=== PATIENT | male | born 1970 | race Caucasian/White ===

== ENCOUNTER → 2018-06-30 | Outpatient (CLI) | payer OTHER ==
[~2018-06-30] MED LIST: ALPR.25; ALPR.25 PO; AMOCLA875 PO; ASPI325; CIPR500 PO; ESCI10; HYDACE10B PO; HYDACE5 PO; LISHYD2025 PO; LISINOPRIL-? DOSE; METH5 PO; METO25ER PO; NAPR500 PO; PROM25 PO; Prinivil10 MG PO; TRAM50 PO
[2018-06-30 15:05] LABS: U Amphetamine Screen Not Detected; U Barbituate Screen Not Detected; U Benzodiazapine Screen DETECTED; U Buprenorphine Screen Not Detected; U Cannabinoids Screen Not Detected; U Cocaine Screen Not Detected; U Methadone Screen Not Detected; U Methamphetamine Screen Not Detected; U Opiates Screen DETECTED; U Oxycodone Screen Not Detected; U Phencyclidine Screen Not Detected; U Propoxyphene Screen Not Detected
== END | disposition home or self-care (01) ==
LOC: LAB 13:42 → LAB SHORT 13:42 → LAB FUT 06-24 10:20 → EDSTATUS 06-24 10:20
PROVIDERS: Physician Assistant
DX: Z51.81 Encounter for therapeutic drug level monitoring (principal); Z79.891 Long term (current) use of opiate analgesic

== ENCOUNTER 2024-04-29 07:39 | Inpatient (IN) | payer OTHER ==
[2024-04-29] VITALS (17 sets, daily range): BP systolic 87–129; BP diastolic 73–101
[~2024-04-29] VITALS: Ht 170.2 cm; Wt 77.3 kg
[2024-04-29] MEDS ORDERED: LISI20 PO (07:53)
[2024-04-29] MEDS ORDERED: METO25ER PO (07:53)
[2024-04-29] MEDS ORDERED: FURO20 PO (07:53)
[2024-04-29 08:30] LABS: BASOPHILS ABSOLUTE AUTO 0.06 K/mm3 (0.00-0.23); BASOPHILS PERCENT AUTO 1 % (0-2); EOSINOPHILS PERCENT AUTO 1 % (0-6); Hematocrit 32.4 % (37.0-53.0); Hemoglobin 11.6 g/dL (13.5-17.5); IMMATURE GRAN ABSOLUTE AUTO 0.07 K/mm3 (0.00-0.10); IMMATURE GRAN PERCENT AUTO 1 % (0-1); LYMPHOCYTES ABSOLUTE AUTO 0.91 K/mm3 (0.84-5.20); LYMPHOCYTES PERCENT AUTO 12 % (21-46); MONOCYTES ABSOLUTE AUTO 1.04 K/mm3 (0.16-1.47); MONOCYTES PERCENT AUTO 14 % (4-13); Mean Corpuscular HGB 33.9 pg (26.0-34.0); Mean Corpuscular HGB Conc 35.8 g/dL (31.5-36.5); Mean Corpuscular Volume 95 fL (80-100); Mean Platelet Volume 9.5 fL (9.1-12.4); NEUTROPHILS ABSOLUTE AUTO 5.19 K/mm3 (1.96-9.15); NEUTROPHILS PERCENT AUTO 71 % (41-73); Platelet Count 159 K/mm3 (150-400); RDW Coefficient Variation 13.3 % (11.7-14.2); RDW Standard Deviation 46.4 fL (35.1-46.3); Red Blood Cell Count 3.42 M/mm3 (4.30-5.90); White Blood Cell Count 7.37 K/mm3 (4.00-11.30)
[2024-04-29] MEDS ORDERED: Furosemide 10 MG / ML 2ML Vial IV ONE (08:50)
[2024-04-29 08:57] LABS: Albumin, Blood 2.6 g/dL (3.4-5.0); Albumin/Globulin Ratio 0.6 (0.8-1.8); Bilirubin, Total 1.3 mg/dL (0.1-1.0); Bun/Creatinine Ratio 10.5 (12.0-20.0); Calcium, Blood 7.9 mg/dL (8.5-10.1); Creatinine, Blood 0.38 mg/dL (0.60-1.20); Globulin, Blood 4.2 g/dL (2.2-4.0); Total Protein, Blood 6.8 g/dL (6.4-8.2)
[2024-04-29] MEDS ORDERED: FLU VACC TS2024-25(6MOS UP)/PF 45 MCG/0.5 ML SYRINGE IM PRN (10:30)
[2024-04-29] MEDS ORDERED: Nicotine 21 MG PATCH TOP ONE (10:30)
[2024-04-29] MEDS ORDERED: Acetaminophen 325 MG TABLET PO PRN (10:35)
[2024-04-29] MEDS ORDERED: Loperamide HCl 2 MG Cap PO PRN (10:35)
[2024-04-29] MEDS ORDERED: ChlordiazePOXIDE 25 MG Cap PO PRN (10:35)
[2024-04-29] MEDS ORDERED: LORazepam 2 MG/ML 1ML Injection IV PRN (10:35)
[2024-04-29] MEDS ORDERED: NS 1,000 ML IV SCH (11:00)
[2024-04-29 11:54] LABS: Source, Urine Clean Catch
[2024-04-29] MEDS ORDERED: Thiamine HCl 100 MG in NS 50 ML IV SCH (12:00)
[2024-04-29 12:14] LABS: Appearance, Urine Clear (Clear); Bilirubin, Urine Neg (Neg); Blood, Urine Neg (Neg); Color, Urine Yellow (P-Yellow); Glucose Qualitative, Urine Neg (Neg); Ketones, Urine 3+ (Neg); Leukocyte Esterase, Urine Neg (Neg); Nitrite, Urine Neg (Neg); Protein, Urine Neg (Neg); Urobilinogen, Urine NORM (Normal); pH, Urine 6.5 (5.0-8.0)
[2024-04-29 13:08] LABS: U Amphetamine Screen Not Detected; U Barbituate Screen Not Detected; U Benzodiazapine Screen Not Detected; U Buprenorphine Screen Not Detected; U Cannabinoids Screen Not Detected; U Cocaine Screen Not Detected; U Methadone Screen Not Detected; U Methamphetamine Screen Not Detected; U Opiates Screen Not Detected; U Oxycodone Screen Not Detected; U Phencyclidine Screen Not Detected
--- NOTE | 2024-04-29 13:08 | NUR ---
PT ARRIVAL... PT ARRIVED TO THE UNIT AT 1200, PT IS A&Ox4 AND SBA IN THE ROOM D/T THE LINES/CORDS. PT WAS ABLE TO SELF TRANSFER FROM THE ER GURNEY TO THE BED. PT'S WAS IN SINUS TACH 100'S-110'S BP WAS STABLE WITH MAPS>65. PT HAS 2+ PITTING EDEMA TO HIS RLE AND 3+ TO HIS LLE. L/S CLEAR T/O ON RA WITH O2 SATS>95%. PT DOES C/O OF DISCOMFORT AND SOME SOB D/T "MY STOMACH PUSHING AGAINST MY LUNGS." PT'S ABD IS LARGE AND SLIGHTLY FIRM TO PALPATION, PT DENIES ANY PAIN AT THIS TIME. PT'S SOUMYA IS AT THE BEDSIDE, MEDS AND HISTORY CHARTED WITH SOUMYA'S HELP. NS AT 50MLS/HR STARTED PER ORDERS. CIWA SCORE WAS 9, PT MEDICATED WITH LIBRIUM PER EMAR. CALL LIGHT IN REACH WILL CONTINUE TO MONITOR.
[2024-04-29 13:23] LABS: Potassium, Blood 3.8 mmol/L (3.5-5.5)
[2024-04-29] MEDS ORDERED: Albuterol 2.5 MG/3 ML VIAL INH PRN (15:55)
[2024-04-29] MEDS ORDERED: Famotidine 20 MG Tab PO SCH (16:30)
[2024-04-29 17:21] LABS: Potassium, Blood 3.6 mmol/L (3.5-5.5)
--- NOTE | 2024-04-29 17:29 | NUR ---
SHIFT SUMMARY.... NO ACUTE NEGATIVE CHANGES NOTED THIS SHIFT. PT'S VSS. PT'S CIWA HAS BEEN BETWEEN 8-11 MEDICATED PER EMAR WITH GOOD RESULTS. PT IS SBA TO TOILET. PT'S FAMILY AT THE BEDSIDE. PLANS FOR PARACENTESIS TOMORROW, ORDERS TO HOLD LOVONOX IN THE AM WERE PLACED. WILL CONTINUE TO MONITOR UNTIL REPORT IS GIVEN TO ONCOMING RN.
--- NOTE | 2024-04-29 20:00 | NUR ---
ASSUMED CARE OF PT AT 1900. REPORT RECEIVED AT BEDSIDE. PT PRESENTS IN BED. ALERT AND ORIENTED. PLEASANT AND COOPERATIVE WITH CARE AND ASSESSMENT. ACKNOWLEDGES THAT HE IS EXPERIENCING ETOH W/D'S. TREMORS NOTED. PT UP TO TOILET WITH ONE PERSON ASSIST. VOIDS AND HAS LOOSE BM WHICH PT STATES IS NORMAL FOR HIM. WILL REVIEW CHART AND PLAN OF CARE FOR THIS PT.
[2024-04-29 21:53] LABS: Potassium, Blood 3.4 mmol/L (3.5-5.5)
[2024-04-30] VITALS (29 sets, daily range): BP systolic 103–140; BP diastolic 62–103
--- NOTE | 2024-04-30 02:37 | NUR ---
UPDATE: ASSUMED CARE OF PT FROM YARELY HEATON AT 0230. PT ALERT AND ORIENTED, RESTING COMFORTABLY AT THIS TIME, HAS NO CONCERNS.
[2024-04-30 03:34] LABS: Hematocrit 28.9 % (37.0-53.0); Hemoglobin 10.3 g/dL (13.5-17.5); Mean Corpuscular HGB 33.4 pg (26.0-34.0); Mean Corpuscular HGB Conc 35.6 g/dL (31.5-36.5); Mean Corpuscular Volume 94 fL (80-100); Mean Platelet Volume 9.3 fL (9.1-12.4); Platelet Count 156 K/mm3 (150-400); RDW Coefficient Variation 13.3 % (11.7-14.2); RDW Standard Deviation 45.6 fL (35.1-46.3); Red Blood Cell Count 3.08 M/mm3 (4.30-5.90); White Blood Cell Count 6.13 K/mm3 (4.00-11.30)
[2024-04-30 03:55] LABS: Magnesium, Blood 1.4 mg/dL (1.6-2.4); Thyroxine (T4) 6.9 ug/dL (4.5-12.1)
[2024-04-30 04:06] LABS: Ferritin, Serum 244 ng/mL (26-388)
[2024-04-30 04:08] LABS: Albumin, Blood 2.4 g/dL (3.4-5.0); Anion Gap 16 mmol/L (3-11); Blood Urea Nitrogen 4 mg/dL (8-24); Bun/Creatinine Ratio 11.5 (12.0-20.0); CO2, Blood 21 mmol/L (21-32); Calcium, Blood 7.5 mg/dL (8.5-10.1); Chloride, Blood 86 mmol/L (98-108); Creatinine, Blood 0.35 mg/dL (0.60-1.20); Glomerular Filtration Rate 135 (60-); Glucose, Blood 88 mg/dL (70-99); Potassium, Blood 3.5 mmol/L (3.5-5.5); Sodium, Blood 119 mmol/L (136-145)
[2024-04-30] MEDS ORDERED: Magnesium Sulf 2 GM/Water 50ML 50 ML IV ONE (04:35)
--- NOTE | 2024-04-30 05:38 | NUR ---
SHIFT SUMMARY: PT ALERT AND ORIENTED. MAKES NEEDS KNOWN AND FOLLOWS DIRECTION. ON RA WITH SPO2 LOW TO MID 90'S. PLASTERER TENDER IN PLACE, ST WITH HR 110-130'S. SBP 115-140'S. DENIES CP. PT UNABLE TO VOID THIS AM DESPITE GETTING UP TO THE COMMODE. STRAIGHT CATH PERFORMED WITH 600 ML OUT. NO BM SINCE ASSUMPTION OF CARE. ABDOMEN DISTENDED AND TENDER TO THE TOUCH. PLANNED PARACENTESIS THIS AM. NS INFUSING AT 75 ML/HR. MAGNESIUM INFUSING AT 25 ML/HR X 50 ML. PIVS INTACT. POWERGLIDE TO DEL PATENT. CIWA 2-8. MEDICATED WITH PRN LIBRIUM. TOLERATING PO INTAKE. BED LOW AND LOCKED, CALL LIGHT IN REACH.
[2024-04-30] MEDS ORDERED: Sodium Phosphate 30 MM in Dextrose 5% 500 ML IV SCH (06:00)
[2024-04-30] MEDS ORDERED: Furosemide 10 MG/ML 4ML Vial IV ONE (07:25)
[2024-04-30 07:56] LABS: Potassium, Blood 3.5 mmol/L (3.5-5.5)
[2024-04-30] MEDS ORDERED: Potassium Phos/Sodium Phos 250 MG PACK PO SCH (08:00)
[2024-04-30] MEDS ORDERED: Enoxaparin 40 MG/0.4 ML SYR SC SCH (09:00)
[2024-04-30] MEDS ORDERED: Multivitamins 1 Tab PO SCH (09:00)
[2024-04-30 10:22] LABS: Automated BF RBC Count 0.002 M/mm3 (0-0); Automated BF WBC Count 0.136 K/mm3 (0-999)
[2024-04-30 10:25] LABS: Body Fluid WBC Count 136 /mm3 (0-999); RBC Count, Body Fluid 2000 /mm3 (0-0)
[2024-04-30 10:57] LABS: Albumin, Body Fluid 1.2 g/dL
[2024-04-30 11:03] LABS: Protein, Body Fluid 2.5 g/dL
[2024-04-30] MEDS ORDERED: Albumin (Human) 25gm/100ml 100 ML IV ONE (11:05)
[2024-04-30 11:56] LABS: Potassium, Blood 2.9 mmol/L (3.5-5.5)
[2024-04-30 12:14] LABS: Appearance, Body Fluid Hazy (Clear); Color, Body Fluid Yellow (None-Yellow); Total Cell Count, Body Fluid 100
[2024-04-30] MEDS ORDERED: Potassium Chloride 20 MEQ TabCR PO ONE (12:25)
[2024-04-30] MEDS ORDERED: Nicotine 21 MG PATCH TOP SCH (13:45)
[2024-04-30 15:52] LABS: Potassium, Blood 3.3 mmol/L (3.5-5.5)
[2024-04-30] MEDS ORDERED: Potassium Chloride 10 Meq Tablet SA PO ONE (16:35)
--- NOTE | 2024-04-30 17:46 | NUR ---
SUMMARY PT A/O X4. SOMETIMES WAKES FROM SLEEP DISORIENTED BUT IS EASILY REORIENTED. FOLLOWS COMMANDS. OOB TO BSC AND USES URINAL AT BEDSIDE WITH ASSIST. PT WILL ASK FOR LIBRIUM WHEN HE FEELS HIS WITHDRAWL SYMPTOMS WORSENING. SODIUM LEVEL SLOWLY IMPROVING AND STARTING TO GET HIS APPEPTITE BACK. PO POTASSIUM GIVEN TODAY. PARACENTESIS DONE TODAY WITH 4L OFF. PT IS MORE COMFORTABLE NOW AND MOVING AROUND EASIER. AT BEDSIDE MOST OF THE DAY AND UPDATED. NO SIGN OF DISTRESS.
--- NOTE | 2024-04-30 20:00 | NUR ---
ASSUMED CARE OF PT AT 1900. REPORT RECEIVED AT BEDSIDE. PT WAS ABLE TO ASK FOR 50 MG MORE LIBRIUM. PT STATES HE IS FEELING SHAKY. PT MEDICATED PER EMAR. PT VISITING WITH GUEST IN ROOM. WILL REVIEW CHART AND PLAN OF CARE FOR THIS PT.
[2024-05-01] VITALS (34 sets, daily range): BP systolic 80–152; BP diastolic 62–129
--- NOTE | 2024-05-01 01:20 | NUR ---
PT HAS BEEN ESCALATING IN CONFUSION AND S/S WITHDRAWALS. HAVE MEDICATED PT TWICE WITH 50 MG LIBRIUM AND TWICE WITH LORAZEPAM. PT HAS PULLED OUT ON OF HIS IV'S. AND HAS MADE MULTIPLE ATTEMPTS TO GET OUT OF BED. PT HAS PULLED AT HIS LEADS AND OXIMETER WELL FREQUENTLY PULLING ON HIS IV LINES. HAVE PLACED PT IN VEST RESTRAINT WELL SOFT MITTS TO PROTECT PT FROM FALL AND DISLODGING HIS VITAL LINES. EARLIER IN SHIFT, PT HAD NOT YET URINATED. DID DO A BLADDER SCAN WHICH REVEALED 920 ML. INTERMITTENT CATHETER DONE WITH RETURN OF > 850 ML URINE. WILL DO ANOTHER BLADDER SCAN AFTER 6 HOURS POST TO EVALUATE NEED FOR CATHETER.
[2024-05-01 03:25] LABS: Source, Urine Foley catheter
[2024-05-01 03:28] LABS: Bilirubin, Urine Neg (Neg); Blood, Urine Neg (Neg); Glucose Qualitative, Urine Neg (Neg); Ketones, Urine 1+ (Neg); Leukocyte Esterase, Urine Neg (Neg); Nitrite, Urine Neg (Neg); Protein, Urine Neg (Neg); Specific Gravity, Urine 1.005 (1.003-1.022); Urobilinogen, Urine NORM (Normal)
[2024-05-01 03:40] LABS: Appearance, Urine Clear (Clear); Color, Urine Yellow (P-Yellow)
[2024-05-01 03:42] LABS: Hemoglobin 10.2 g/dL (13.5-17.5); Mean Corpuscular HGB 33.6 pg (26.0-34.0); Mean Corpuscular HGB Conc 35.2 g/dL (31.5-36.5); Mean Corpuscular Volume 95 fL (80-100); Mean Platelet Volume 9.5 fL (9.1-12.4); Platelet Count 142 K/mm3 (150-400); RDW Coefficient Variation 13.5 % (11.7-14.2); RDW Standard Deviation 47.3 fL (35.1-46.3); Red Blood Cell Count 3.04 M/mm3 (4.30-5.90); White Blood Cell Count 5.85 K/mm3 (4.00-11.30)
[2024-05-01 04:07] LABS: Albumin, Blood 2.7 g/dL (3.4-5.0); Anion Gap 11 mmol/L (3-11); Blood Urea Nitrogen 3 mg/dL (8-24); Bun/Creatinine Ratio 8.8 (12.0-20.0); CO2, Blood 26 mmol/L (21-32); Calcium, Blood 7.9 mg/dL (8.5-10.1); Chloride, Blood 96 mmol/L (98-108); Creatinine, Blood 0.34 mg/dL (0.60-1.20); Glomerular Filtration Rate 136 (60-); Glucose, Blood 117 mg/dL (70-99); Magnesium, Blood 1.6 mg/dL (1.6-2.4); Phosphorus, Blood 1.8 mg/dL (2.5-4.9); Potassium, Blood 3.5 mmol/L (3.5-5.5); Sodium, Blood 129 mmol/L (136-145)
[2024-05-01] MEDS ORDERED: Magnesium Sulf 2 GM/Water 50ML 50 ML IV ONE (04:20)
[2024-05-01] MEDS ORDERED: Potassium Phosphate Dibasic 30 MM in Dextrose 5% 500 ML IV ONE (04:20)
--- NOTE | 2024-05-01 06:54 | NUR ---
HAVE MEDICATED PT WITH ATIVAN AND LIBRIUM FOR S/S ESCALATING WITHDRAWAL SYMPTOMS. HAVE BLADDER SCANNED PT SEVERAL TIMES WITH HIGH VALUES 710 AND 920. HAVE PLACED 16 SYRIAC SINGH SECONDARTY TO RETENTION. HAS BEEN STRAIGHT CATHED THREE TIMES. WILL CONTINUE TO MONITOR PT, AND WILL REPORT OFF TO ONCOMING RN.
[2024-05-01] MEDS ORDERED: dexmedeTOMIDine 100 ML IV SCH (08:05)
[2024-05-01] MEDS ORDERED: NS 1,000 ML IV SCH (16:55)
--- NOTE | 2024-05-01 18:19 | NUR ---
SUMMARY PT WAS AGITATED THIS AM. CONSTANTLY PULLING AT TUBES AND ATTEMPTING OOB WITH UNSTEADY GAIT. PULLED ON CATHETER AND NOW HAS CATALINA DEY MD AWARE. STARTED PRECEDEX AND THAT HAS WORKED WELL FOR PT. NO PO INTAKE TODAY, SPOKE WITH DR. VARGAS WHO ORDERED IVF TO RESTART. NO OTHER ACUTE CHANGES THIS SHIFT.
[2024-05-02] VITALS (18 sets, daily range): BP systolic 79–136; BP diastolic 60–99
[2024-05-02 04:40] LABS: Hematocrit 29.6 % (37.0-53.0); Hemoglobin 10.3 g/dL (13.5-17.5); Mean Corpuscular HGB Conc 34.8 g/dL (31.5-36.5); Mean Corpuscular Volume 98 fL (80-100); Mean Platelet Volume 9.7 fL (9.1-12.4); Platelet Count 149 K/mm3 (150-400); RDW Coefficient Variation 14.2 % (11.7-14.2); RDW Standard Deviation 50.6 fL (35.1-46.3); Red Blood Cell Count 3.03 M/mm3 (4.30-5.90); White Blood Cell Count 6.46 K/mm3 (4.00-11.30)
[2024-05-02 05:03] LABS: Albumin, Blood 2.1 g/dL (3.4-5.0); Anion Gap 11 mmol/L (3-11); Blood Urea Nitrogen 5 mg/dL (8-24); Bun/Creatinine Ratio 12.1 (12.0-20.0); CO2, Blood 26 mmol/L (21-32); Calcium, Blood 7.6 mg/dL (8.5-10.1); Chloride, Blood 100 mmol/L (98-108); Creatinine, Blood 0.41 mg/dL (0.60-1.20); Glomerular Filtration Rate 129 (60-); Glucose, Blood 92 mg/dL (70-99); Magnesium, Blood 1.7 mg/dL (1.6-2.4); Potassium, Blood 3.9 mmol/L (3.5-5.5); Sodium, Blood 133 mmol/L (136-145)
--- NOTE | 2024-05-02 06:28 | NUR ---
SHIFT SUMMARY: PT WAS CALM AND SLEPT COMFORTABLY ALL NIGHT. WOKE TO VERBAL STIMULI AND FOLLOWED COMMANDS. DEX DOWN TO 0.1. NEEDED 1-2LNC WHILE SLEEPING. URINE STILL JOSEPH BUT NO MORE VISIBLE BLOOD.
[2024-05-02] MEDS ORDERED: Famotidine 10 MG/ML 2ML Vial IV SCH (07:30)
--- NOTE | 2024-05-02 18:01 | NUR ---
SHIFT SUMMARY PT IS A&OX3-4, RESPONDS APPROPRIATLY, HAS HAD VISUAL HALLUCINATIONS T/O THIS SHIFT. MEDICATED WITH LIBRIUM WITH IMPROVEMENT. SPEECH IS MUMBLED. ON CONTINUOUS WASTE MANAGEMENT ENGINEER, HR 100-110'S, MAPS > 65, DENIES CP/PRESSURE. L/S CLEAR AND DIM, ON ROOM AIR WITH SATS IN THE 90'S. DENIES SOB. ABD IS DISTENDED AND FIRM BUT DENIES PAIN. SINGH IN PLACE AND DRAINING TO GRAVITY. TOLERATING PO INTAKE. AT BEDSIDE. CALL LIGHT IN REACH. NO ACUTE EVENTS THIS SHIFT.
[2024-05-03] VITALS (37 sets, daily range): BP systolic 78–172; BP diastolic 62–127
[2024-05-03 04:31] LABS: Hematocrit 28.9 % (37.0-53.0); Mean Corpuscular HGB 33.8 pg (26.0-34.0); Mean Corpuscular HGB Conc 34.6 g/dL (31.5-36.5); Mean Corpuscular Volume 98 fL (80-100); Mean Platelet Volume 9.1 fL (9.1-12.4); Platelet Count 152 K/mm3 (150-400); RDW Coefficient Variation 14.4 % (11.7-14.2); RDW Standard Deviation 51.4 fL (35.1-46.3); Red Blood Cell Count 2.96 M/mm3 (4.30-5.90); White Blood Cell Count 5.68 K/mm3 (4.00-11.30)
[2024-05-03 04:45] LABS: International Normalized Ratio 1.26; Prothrombin Time Results 13.3 Sec (9.7-11.5)
[2024-05-03 04:49] LABS: Albumin/Globulin Ratio 0.6 (0.8-1.8); Bilirubin, Total 0.7 mg/dL (0.1-1.0); Bun/Creatinine Ratio 9.9 (12.0-20.0); Creatinine, Blood 0.4 mg/dL (0.60-1.20); Globulin, Blood 3.1 g/dL (2.2-4.0); Magnesium, Blood 1.8 mg/dL (1.6-2.4); Potassium, Blood 3.6 mmol/L (3.5-5.5); Total Protein, Blood 5.1 g/dL (6.4-8.2)
--- NOTE | 2024-05-03 05:53 | NUR ---
SHIFT SUMMERY PT WAS ALERT AND ORIENTED AT THE BEGINNING OF SHIFT W/SOME CONFUSION/HALLUCINATIONS. HE BECAME INCREASINGLY AGITATED, TRYING TO PUNCH STAFF AND CURSING. PRECEDEX WAS RESTARTED-SEE FLOWSHEET AND PT HAS BEEN MUCH CALMER. PRECEDEX IS ON SB AT THIS TIME. PT HAS BEEN AFEBRILE. SR-ST ON THE CARIDAC MONTIOR. BP WNL. SINGH CATH INTACT PATENT AND DRAINING TO GRAVITY.
[2024-05-03 12:26] LABS: IMMATURE RETIC FRACTION 21.5 % (2.3-16.0); RETIC HGB EQUIVALENT 34.4 pg (28.20-36.60); RETICULOCYTE ABSOLUTE 0.0955 M/mm3 (0.0200-0.1100); RETICULOCYTE COUNT PERCENT 3.09 % (0.50-2.50)
--- NOTE | 2024-05-03 17:26 | NUR ---
SHIFT SUMMARY PT A&OX4, RESPONDING SLOWLY BUT APPROPRIATLY, CALLING APPROPRIATLY. ON CONTINUOUS MANAGED CARE PROVIDER W/ HR 100-110'S, MAPS > 65, DENIES CP/PRESSURE. ON ROOM AIR, SATS IN THE 90'S, DENIES SOB, L/S CLEAR AND DIM. SINGH PATENT AND DRAINING TO GRAVITY. TOLERATING PO INTAKE, DENIES N/V. ABD SLIGHTLY LARGER THAN YESTERDAY, FIRM, PT DENIES PAIN. MEDICATED W/ LIBRIUM PRN, PT IS CALM AND COOPERATIVE, BUT REPORTS VISUAL HALLUCINATIONS. REORIENTATION PROVIDED NEEDED W/ SOME SUCCESS. MOOD HAS BEEN PLEASANT THIS SHIFT. NO ACUTE EVENTS, CALL LIGHT IN REACH.
[2024-05-04] VITALS (42 sets, daily range): BP systolic 97–148; BP diastolic 72–105
[2024-05-04 03:32] LABS: BASOPHILS ABSOLUTE AUTO 0.07 K/mm3 (0.00-0.23); BASOPHILS PERCENT AUTO 1 % (0-2); EOSINOPHILS ABSOLUTE AUTO 0.18 K/mm3 (0.00-0.68); EOSINOPHILS PERCENT AUTO 2 % (0-6); Hemoglobin 10.3 g/dL (13.5-17.5); IMMATURE GRAN ABSOLUTE AUTO 0.05 K/mm3 (0.00-0.10); IMMATURE GRAN PERCENT AUTO 1 % (0-1); LYMPHOCYTES ABSOLUTE AUTO 0.89 K/mm3 (0.84-5.20); LYMPHOCYTES PERCENT AUTO 11 % (21-46); MONOCYTES ABSOLUTE AUTO 1.49 K/mm3 (0.16-1.47); MONOCYTES PERCENT AUTO 19 % (4-13); Mean Corpuscular HGB 34.2 pg (26.0-34.0); Mean Corpuscular HGB Conc 35.5 g/dL (31.5-36.5); Mean Corpuscular Volume 96 fL (80-100); Mean Platelet Volume 8.9 fL (9.1-12.4); NEUTROPHILS ABSOLUTE AUTO 5.35 K/mm3 (1.96-9.15); NEUTROPHILS PERCENT AUTO 67 % (41-73); Platelet Count 167 K/mm3 (150-400); RDW Coefficient Variation 14.4 % (11.7-14.2); RDW Standard Deviation 50.4 fL (35.1-46.3); Red Blood Cell Count 3.01 M/mm3 (4.30-5.90); White Blood Cell Count 8.03 K/mm3 (4.00-11.30)
[2024-05-04 03:49] LABS: Albumin, Blood 2.2 g/dL (3.4-5.0); Anion Gap 12 mmol/L (3-11); Blood Urea Nitrogen 5 mg/dL (8-24); Bun/Creatinine Ratio 11.9 (12.0-20.0); CO2, Blood 24 mmol/L (21-32); Chloride, Blood 105 mmol/L (98-108); Creatinine, Blood 0.42 mg/dL (0.60-1.20); Glomerular Filtration Rate 128 (60-); Glucose, Blood 101 mg/dL (70-99); Magnesium, Blood 1.5 mg/dL (1.6-2.4); Phosphorus, Blood 2.5 mg/dL (2.5-4.9); Potassium, Blood 3.8 mmol/L (3.5-5.5); Sodium, Blood 137 mmol/L (136-145)
[2024-05-04] MEDS ORDERED: Magnesium Sulf 2 GM/Water 50ML 50 ML IV ONE (04:40)
--- NOTE | 2024-05-04 05:34 | NUR ---
SHIFT SUMMARY PATIENT ALERT AND ORIENTED X3-4. SLEPT ON AND OFF MOST THE NIGHT, WAKES CONFUSED BUT ABLE TO REDIRECT. ONE DOSE OF LIBRIUM GIVEN AT START OF SHIFT. SP02 94% ON 2L VIA NC WHILE SLEEPING, RA WHEN AWAKE. HR ST 110-120, BP STABLE. SINGH CATH PATENT AND DRAINING TO GRAVITY. ABLE TO REPOSITION SELF IN BED, ASSISTED WITH TURNS AND BOOSTED IN BED NEEDED. REPLACING MAG THIS AM. CALL LIGHT IN REACH.
--- NOTE | 2024-05-04 07:30 | NUR ---
ASSUME CARE: BEDSIDE REPORT TAKEN FROM ARI. PT A/Ox4 WITH INTERMITTENT CONFUSION. SBP 140s, MAP>65 PT DENIES CHEST PAIN OR PRESSURE. MONITOR SHOWS SINUS TACH RYTHM RATE 110s. SPO2>93% ON 2L NC. PT ABLE TO EAT BREAKFAST W/ ASSISTANCE FROM . CONCERNED ABOUT RESTARTING PT BP MEDICATION AND WORSENING ASCITES.
[2024-05-04] MEDS ORDERED: Mag Sulfate 1 GM/D5% 100ML 100 ML IV STA (07:42)
[2024-05-04] MEDS ORDERED: Lisinopril 20 MG Tab PO SCH (16:15)
--- NOTE | 2024-05-04 17:34 | NUR ---
SHIFT SUMMARY: PT A/Ox4 INTERMITTENTLY CONFUSED AT TIMES, HARD TO UNDERSTAND HE MUMBLES HIS WORDS. SBP 140s, MAP>65. MONITOR SHOWS SINUS RYTHM TO SINUS TACH, RATE 80s-100s. SPO2>95% ON RA. PT ABLE TO AMBULATE TO CHAIR W/ PHYSICAL THERAPY. PT 2 PERSON ASSIST W/ WALKER. AT BEDSIDE. WILL REPORT TO ONCOMING RN.
[2024-05-05] VITALS (7 sets, daily range): BP systolic 99–144; BP diastolic 81–117
[2024-05-05 03:46] LABS: BASOPHILS ABSOLUTE AUTO 0.06 K/mm3 (0.00-0.23); BASOPHILS PERCENT AUTO 1 % (0-2); EOSINOPHILS ABSOLUTE AUTO 0.22 K/mm3 (0.00-0.68); EOSINOPHILS PERCENT AUTO 4 % (0-6); Hematocrit 30.9 % (37.0-53.0); Hemoglobin 10.5 g/dL (13.5-17.5); IMMATURE GRAN ABSOLUTE AUTO 0.02 K/mm3 (0.00-0.10); IMMATURE GRAN PERCENT AUTO 0 % (0-1); LYMPHOCYTES ABSOLUTE AUTO 1.07 K/mm3 (0.84-5.20); LYMPHOCYTES PERCENT AUTO 18 % (21-46); MONOCYTES ABSOLUTE AUTO 1.07 K/mm3 (0.16-1.47); MONOCYTES PERCENT AUTO 18 % (4-13); Mean Corpuscular HGB 33.3 pg (26.0-34.0); Mean Corpuscular Volume 98 fL (80-100); Mean Platelet Volume 9.1 fL (9.1-12.4); NEUTROPHILS ABSOLUTE AUTO 3.62 K/mm3 (1.96-9.15); NEUTROPHILS PERCENT AUTO 60 % (41-73); Platelet Count 180 K/mm3 (150-400); RDW Coefficient Variation 14.5 % (11.7-14.2); RDW Standard Deviation 52.5 fL (35.1-46.3); Red Blood Cell Count 3.15 M/mm3 (4.30-5.90); White Blood Cell Count 6.06 K/mm3 (4.00-11.30)
[2024-05-05 04:04] LABS: Albumin, Blood 2.1 g/dL (3.4-5.0); Anion Gap 11 mmol/L (3-11); Blood Urea Nitrogen 5 mg/dL (8-24); Bun/Creatinine Ratio 10.5 (12.0-20.0); CO2, Blood 25 mmol/L (21-32); Calcium, Blood 7.8 mg/dL (8.5-10.1); Chloride, Blood 106 mmol/L (98-108); Creatinine, Blood 0.48 mg/dL (0.60-1.20); Glomerular Filtration Rate 123 (60-); Glucose, Blood 86 mg/dL (70-99); Magnesium, Blood 1.8 mg/dL (1.6-2.4); Phosphorus, Blood 2.9 mg/dL (2.5-4.9); Potassium, Blood 3.8 mmol/L (3.5-5.5); Sodium, Blood 138 mmol/L (136-145)
--- NOTE | 2024-05-05 05:44 | NUR ---
SHIFT SUMMARY PATIENT SLEPT ALL NIGHT. A&OX 1-3, WHEN PATIENT JUST WAKES UP A LITTLE CONFUSED ON WHERE HE IS BUT WITH REMINDERS HE REMEMBERS HE IS IN THE ICU. SBP 140-150'S AND HR IN THE 80-90'S. PATIENT ON RA THROUGH NIGHT SATS 95 AND ABOVE. PATIENT DOES FORGET TO PUSH CALL LIGHT SO BED ALARM IS ON. CALL LIGHT WITHIN REACH
[2024-05-05] MEDS ORDERED: Thiamine HCl 100 MG Tab PO SCH (09:00)
[2024-05-05] MEDS ORDERED: Folic Acid 1 MG TAB PO SCH (09:00)
[2024-05-05] MEDS ORDERED: Furosemide 10 MG / ML 2ML Vial IV ONE (14:00)
--- NOTE | 2024-05-05 15:06 | NUR ---
MARLON WAS ATTEMPTING TO GET OUT OF BED, ASKED ABOUT WHERE HE WAS GOING, HE WAS "JUST TAKING A BREAK". HE WAS ASSISTED TO THE RECLINER, HE NEEDS 2 PERSON ASSISTANCE WITH WALKER AND GAIT BELT, VERY SLOW SHUFFLE. HE STATES THAT HE CAN MAKE IT ACROSS THE ROOM. HE IS REMINDED TO USE THE CALL LIGHT AND WE ARE HERE TO HELP. CALL LIGHT IN HIS HAND. LASIX WITH GOOD OUTPUT. REPORT TO JARAD MAYORGA RN ON MEDICAL FLOOR. WILL TRANSFER UP TO ROOM 303 SHORTLY.
[2024-05-05] MEDS ORDERED: Propranolol HCL 20 MG TAB PO SCH ×2 (16:30)
[2024-05-06 02:34] VITALS: BP 106/80
--- NOTE | 2024-05-06 06:48 | NUR ---
SHIFT SUMMARY PT LYING IN BED RESTING AT START OF SHIFT. PT UP TO BEDSIDE COMMODE. THIS RN AND COLD HEADER OPERATOR HAD TO PROVIDE MUCH SUPPORT FOR PT TO GET UP AND PIVETTED TO BSC. RECOMMED 2 PERSON MAX ASSIST FOR THIS PT, HE IS STILL VERY WEAK ON HIS FEET. PT HAD BLOOD IN URINE NOTED FROM CATHETER TUBING. TUBING FLUSHED TO PUSH BLOODY URINE INTO COLLECTION BAG. PT RESPONDED WELL. SLEEPING COMFORTABLY IN BED. APPROX 0510, PT ATTEMPTING TO GET OUT OF BED STATING HE NEEDS A BOX FROM UNDER THE CHAIR IN HIS ROOM. NO SUCH BOX EXISTS. PT IS CONFUSED AND TRYING TO GET OUT OF BED TO FIND THE BOX. COLD HEADER OPERATOR ATTEMPTED TO REORIENT TO LOCATION AND SITUATION, AND PT BACK TO BED SAFELY.
[2024-05-06 06:56] LABS: BASOPHILS ABSOLUTE AUTO 0.09 K/mm3 (0.00-0.23); BASOPHILS PERCENT AUTO 1 % (0-2); EOSINOPHILS ABSOLUTE AUTO 0.28 K/mm3 (0.00-0.68); EOSINOPHILS PERCENT AUTO 4 % (0-6); Hematocrit 30.5 % (37.0-53.0); Hemoglobin 10.5 g/dL (13.5-17.5); IMMATURE GRAN ABSOLUTE AUTO 0.02 K/mm3 (0.00-0.10); IMMATURE GRAN PERCENT AUTO 0 % (0-1); LYMPHOCYTES ABSOLUTE AUTO 0.89 K/mm3 (0.84-5.20); LYMPHOCYTES PERCENT AUTO 11 % (21-46); MONOCYTES ABSOLUTE AUTO 1.23 K/mm3 (0.16-1.47); MONOCYTES PERCENT AUTO 16 % (4-13); Mean Corpuscular HGB 33.7 pg (26.0-34.0); Mean Corpuscular HGB Conc 34.4 g/dL (31.5-36.5); Mean Corpuscular Volume 98 fL (80-100); NEUTROPHILS ABSOLUTE AUTO 5.43 K/mm3 (1.96-9.15); NEUTROPHILS PERCENT AUTO 68 % (41-73); Platelet Count 259 K/mm3 (150-400); RDW Coefficient Variation 14.4 % (11.7-14.2); RDW Standard Deviation 51.6 fL (35.1-46.3); Red Blood Cell Count 3.12 M/mm3 (4.30-5.90); White Blood Cell Count 7.94 K/mm3 (4.00-11.30)
[2024-05-06 07:12] VITALS: BP 124/98
[2024-05-06 07:27] LABS: Albumin, Blood 2.1 g/dL (3.4-5.0); Albumin/Globulin Ratio 0.6 (0.8-1.8); Bilirubin, Total 0.5 mg/dL (0.1-1.0); Bun/Creatinine Ratio 15.7 (12.0-20.0); Calcium, Blood 8.6 mg/dL (8.5-10.1); Creatinine, Blood 0.45 mg/dL (0.60-1.20); Globulin, Blood 3.5 g/dL (2.2-4.0); Magnesium, Blood 1.7 mg/dL (1.6-2.4); Potassium, Blood 4.1 mmol/L (3.5-5.5); Total Protein, Blood 5.6 g/dL (6.4-8.2)
[2024-05-06 15:19] VITALS: BP 81/64
[2024-05-06] MEDS ORDERED: Melatonin 5 MG Tablet PO PRN (15:20)
--- NOTE | 2024-05-06 15:45 | NUR ---
ATTEMPTED TO CONTACT DR. DAVIS ABOUT BLOOD PRESSURE OF 81/64 MAP OF 71. NO ANSWER WILL ATTEMPT TO NOTIFY AGAIN IN ABOUT 15 MINUES.
[2024-05-06] MEDS ORDERED: NS 500 ML IV ONE (16:05)
[2024-05-06] MEDS ORDERED: NS 1,000 ML IV SCH (16:05)
[2024-05-06] MEDS ORDERED: Propranolol HCL 20 MG TAB PO SCH (16:30)
[2024-05-06] MEDS ORDERED: Famotidine 20 MG Tab PO SCH (16:30)
[2024-05-06 17:57] VITALS: BP 109/81
--- NOTE | 2024-05-06 18:23 | NUR ---
SHIFT SUMMARY PT CONFUSED AT TIMES, ESPECIALLY UPON WAKING UP FROM SLEEP. ATTEMPTED TO PULL OUT SINGH CATHETER. REPLACED STATLOCK SECUREMENT DEVICE. URINE JOSEPH IN COLOR. ABLE TO TALK PT DOWN FROM IRRITABILITY AT THIS TIME. PT TOOK A NAP TODAY HE STATED HE HAD NOT BEEN GETTING GOOD REST. ASKED FOR A SLEEP AID, DR. DAVIS ORDERED MELATONIN PRN AT BEDTIME. B/P THIS EVENING WAS 81/[address] DAVIS NOTIFIED AND ORDERED A 500 ML BOLUS. RECHECK B/P POST BOLUS 109/81. PT MORE ALERT POST BOLUS. HAD PLACED PATIENT ON 1L NC WHILE LETHARGIC WITH LOW B/P BUT NOW BACK ON ROOM AIR AT 93%. DOES NOT CALL APPROPRIATELY. CONT/INCONT OF BOWEL. 2 MAX ASSIST TO BSC WITH GAIT BELT. PT DOES NOT ASSIST WITH TRANSFERS.
[2024-05-06 19:39] VITALS: BP 100/79
[2024-05-07] VITALS (8 sets, daily range): BP systolic 95–115; BP diastolic 65–94
--- NOTE | 2024-05-07 03:12 | NUR ---
SHIFT SUMMARY PT IS A&O TO SELF AND PERSON, MUMBLED SPEECH. PT MOVING LEGS OFF THE BED, STATING " I WANT TO GO THERE." REORIENTED UNSUCCESSFULLY. SINGH DRAINING TO GRAVITY, JOSEPH COLOR URINE. ATTENDS IN PLACE, Q2HR REPOSITIONING T/O THIS SHIFT. HS PRN MELATONIN ADMINISTERED ORDERED. PT RESTING COMFORTABLY FOR FEW HRS DURING THIS SHIFT. TELE: SR @90. NO ACUTE EVENTS DURING THIS SHIFT. BED AT THE LOWEST POSITION, CALL LIGHT WITHIN REACH. FREQUENT CHECKS BY THE BEDSIDE T/O THE NIGHT HRS. PT UNABLE TO UNDERSTAND TO USE THE CALL LIGHT AT THIS TIME. BED ALARM FOR SAFETY. SOME BED EXITING ATTEMPTS DURING THIS SHIFT, REPOSITIONED.
--- NOTE | 2024-05-07 08:58 | NUR ---
NOTIFIED DR. DAVIS OF B/P OF AND PATIENTS WET SOUNDING COUGH. HE ORDERED TO D/C FLUID INFUSION AND EDIT HYDRALAZINE TO 10 MG Q4 UP FROM 5 MG PRN. PATIENT IS FRUSTRATED OVER NOT HAVING IMAGING OR LAB RESULTS DISCUSSED SO RELAYED TO DR. DAVIS IF HE COULD SIT DOWN WITH PATIENT TO DISCUSS THIS.
[2024-05-07] MEDS ORDERED: Lisinopril 10 MG Tab PO SCH (09:00)
--- NOTE | 2024-05-07 09:01 | NUR ---
NOTIFIED DR. DAVIS THIS MORNING OF BLOOD PRESSURE 95/65. ORDER TO HOLD B/P ALTRING MEDS THIS AM.
--- NOTE | 2024-05-07 12:29 | NUR ---
DENTAL HYGENIST CAME TO EVALUATE PATIENT, FOUND THRUSH ON TONGUE PALATE AND CHEEK. NOTIFIED DR. DAVIS OF FINDINGS.
[2024-05-07] MEDS ORDERED: Spironolactone 25 MG Tab PO ONE (13:00)
[2024-05-07] MEDS ORDERED: Furosemide 20 MG Tab PO ONE (13:00)
[2024-05-07] MEDS ORDERED: Albumin (Human) 25gm/100ml 100 ML IV ONE (13:00)
[2024-05-07] MEDS ORDERED: Nystatin 100,000 Unit/ML Susp 5 ML UDC SS SCH (13:00)
[2024-05-07 13:07] LABS: HEPATITIS A ANTIBODY, IGM Negative (Negative); HEPATITIS B CORE ANTIBODY, IGM Negative (Negative); HEPATITIS B SURFACE ANTIGEN Negative (Negative); HEPATITIS C AB CIA INTERP Negative (Negative)
[2024-05-07] MEDS ORDERED: Naltrexone HCl 50 MG Tab PO SCH (14:00)
--- NOTE | 2024-05-07 14:34 | NUR ---
MET WITH PATIENT, HIS SOUMYA, PROVIDER, BEDSIDE RN. PROVIDER WAS DISCUSSING PATIENTS CURRENT CONDITION. WE DISCUSSED MEDICATION OPTIONS. HIS BP IS LOW, ABDOMENT IS SWOLLEN. RECENTLY PROVIDER BP MEDS TO ADDRESS PORTAL HYPERTENSION. HE IS HESITANT TO START LASIX IT WILL AFFECT BP. CONSIDERING ALBUMIN, BUT INFROMS THEM THIS IS ONLY A TEMPORARY INTERVENTION.
[2024-05-07 16:57] LABS: Base Excess Venous 2.5 mmol/L; Bicarbonate Venous 26.4 mmol/L (24.0-30.0); PCO2 Venous 42.9 mmHg (38-42); pH Blood Venous 7.41 (7.34-7.37)
[2024-05-07 17:38] LABS: BASOPHILS ABSOLUTE AUTO 0.06 K/mm3 (0.00-0.23); BASOPHILS PERCENT AUTO 1 % (0-2); EOSINOPHILS ABSOLUTE AUTO 0.17 K/mm3 (0.00-0.68); EOSINOPHILS PERCENT AUTO 3 % (0-6); Hematocrit 28.4 % (37.0-53.0); Hemoglobin 9.4 g/dL (13.5-17.5); IMMATURE GRAN ABSOLUTE AUTO 0.03 K/mm3 (0.00-0.10); IMMATURE GRAN PERCENT AUTO 1 % (0-1); LYMPHOCYTES ABSOLUTE AUTO 0.82 K/mm3 (0.84-5.20); LYMPHOCYTES PERCENT AUTO 13 % (21-46); MONOCYTES ABSOLUTE AUTO 0.92 K/mm3 (0.16-1.47); MONOCYTES PERCENT AUTO 14 % (4-13); Mean Corpuscular HGB 32.9 pg (26.0-34.0); Mean Corpuscular HGB Conc 33.1 g/dL (31.5-36.5); Mean Corpuscular Volume 99 fL (80-100); Mean Platelet Volume 9.4 fL (9.1-12.4); NEUTROPHILS PERCENT AUTO 69 % (41-73); Platelet Count 284 K/mm3 (150-400); RDW Coefficient Variation 14.6 % (11.7-14.2); RDW Standard Deviation 53.5 fL (35.1-46.3); Red Blood Cell Count 2.86 M/mm3 (4.30-5.90)
[2024-05-07 17:50] LABS: International Normalized Ratio 1.16; Prothrombin Time Results 12.3 Sec (9.7-11.5)
[2024-05-07 18:15] LABS: Magnesium, Blood 1.7 mg/dL (1.6-2.4)
[2024-05-07 18:18] LABS: Albumin, Blood 2.3 g/dL (3.4-5.0); Albumin/Globulin Ratio 0.7 (0.8-1.8); Bilirubin, Total 0.5 mg/dL (0.1-1.0); Calcium, Blood 8.3 mg/dL (8.5-10.1); Creatinine, Blood 0.43 mg/dL (0.60-1.20); Globulin, Blood 3.4 g/dL (2.2-4.0); Phosphorus, Blood 3.8 mg/dL (2.5-4.9); Potassium, Blood 3.9 mmol/L (3.5-5.5); Total Protein, Blood 5.7 g/dL (6.4-8.2)
--- NOTE | 2024-05-07 18:26 | NUR ---
PT TX FROM 303 TO PCU 08 THE PT WAS TRANSFERED TO PCU 08 D/T DECREASED MENTATION. REPORT RECIEVED FROM SEPTEMBER. THE PT ARRIVED ON 1L NC W/ SP02 >93%. WHEN AUSCULTATING THE PT'S LUNG SOUNDS HE SOUNDS VERY DIMINISHED IN THE BASES, AND CLEAR IN THE UPPER LOBES. ON TELE HE IS SR 80'S, BP SOFT BUT STABLE AT THIS TIME. WHEN ASSESSING THE PT HE HAD A RIGHT EYE DOLL GAZE LOOKING AT THE WALL WHILE HIS LEFT EYE WAS STARING FORWARD. SEPTEMBER, PT'S PREVIOUS NURSE ON MEDICAL FLOOR, WAS IN THE SOTO. THIS SUPERVISOR PAPER PRODUCTS STOPPED HER TO SEE IF THE PT HAS HAD ANY ISSUES WITH HIS EYES OR A GAZE. WHEN REENTERING THE ROOM, THE PT CORRECTED HIS EYE. THE PT'S FAMILY DID STATE THAT HE HAS BEEN C/O RIGHT EYE PAIN AND HAVING IT PRODUCE DISCHARGE SINCE HE WAS IN ICU. THE PT MUMBLES WHEN SPEAKING, BUT ANSWERED ALL ORIENTATION QUESTIONS APPROPRIATELY. HE IS ARROUSABLE TO TOUCH. HE HAS EQUAL WEAK STRENGTH IN BUE. HE DID NOT FOLLOW COMMANDS WHEN ASKING THE PT TO POINT HIS TOES AND PRESS AGAINST MY HANDS. THE FAMILY WAS AT BEDSIDE AND NOTIFIED OF THE TRANSFER. PT WAS SOILED WITH URINE AND CHANGED. BED ALARM ON, THREE SIDE RAILS UP. DR. DAVIS CALLED AND NOTIFIED OF THE DOLL GAZE, CHANGE IN DIMINISHED LUNG SOUNDS, AND THAT LAB REPORTED LIPIDS FLOATING AROUND THE SAMPLE SENT FOR LABS THIS AFTERNOON. DR. DAVIS ORDERED A HEAD CT W/O CONTRAST, 2V CHEST XRAY, AND A CORNARY RISK PANEL. SEE NOTES FOR UDPATES.
--- NOTE | 2024-05-07 19:15 | NUR ---
TRANSFER NOTE/SHIFT SUMMARY PATIENT WAS DROWSY THIS MORNING BUT UPON WAKING ALERT AND ORIENTED X3, UNAWARE OF SITUATION. B/P SOFT BUT STABLE, DR. DAVIS WAS NOTIFIED OF B/P OF 95/65 THIS MORNING. ROUNDED WITH DR. DAVIS WITH FAMILY PRESENT AROUND 11. PT WAS ALERT AND FOLLOWING COMMANDS AND VERBALLY COMPREHENDING PLAN OF CARE. DR DAVIS ORDERED NEW MEDICATIONS TO START TODAY. LASIX, SPIRINOLACTONE, ALBUMIN AND NALTREXONE. ABOUT AN HOUR AFTER THESE WERE GIVEN, PT APPEARED MORE LETHARGIC VITALS WERE TAKEN AGAIN AND NOT MUCH OF A CHANGE FROM PRIOR VITALS. PT RESPONDED TO TOUCH/PAIN ONLY. WHEN ASKED TO OPEN HIS EYES HE WOULD BUT VERY SLOWLY. PUPILS EQUAL AND REACTIVE. SPEECH MUMBLED. DR. DAVIS NOTIFIED OF CHANGE IN MENTATION AND NEW LABS WERE DRAWN AND TRANSFER TO PCU FOR CLOSER MONITORING INITIATED. PT HAD A SINGH FOR RETNETION THAT WAS REMOVED AROUND NOON. PT HAD AN ASSISTED VOID VIA URINAL PRIOR TO TRANSFER TO PCU. REPORT CALLED TO SUDARSHAN MASTERSON. BELONGINGS GATHERED AND SENT WITH PATIENT. FAMILY WAS IN ROOM AND NOTIFIED OF TRANSFER TO NEW ROOM. Beverley
[2024-05-07 19:21] LABS: Cholesterol 104 mg/dL (50-200); HDL Cholesterol 13 mg/dL (>39); LDL/HDL RATIO 5.3; Low Density Lipoprotein Chol 69 mg/dL (0-110); Triglycerides 109 mg/dL (30-160); Very Low Density Lipoprot Chol 21 mg/dL (6-32)
--- NOTE | 2024-05-07 20:57 | NUR ---
THIS RN ASSUMED CARE OF PT AROUND 1900. PT HAD JUST GOTTEN BACK FROM CT WHICH WAS NEGATIVE OF THE HEAD. PT BEGAN HAVING ALTERED MENTAL STATUS AT SHIFT CHANGE. PT IS ALERT AND ORIETNED X2, TOLD ME HIS NAME AND DATE, BUT IT WAS IN A VERY SOFT TONE. PT FOLLOWED COMMANDS, STRENGTH WAS EQUAL BILATERALLY. PT SOUNDED CLEAR/DIMINSIHED, PT DENIED SHORTNESS OF BREATHE AND IS ON ROOM AIR SATTING >95%. PT HEART RATE IS IN NORMAL SINUS RHYTHM 80-90s, BLOOD PRESSURE STABLE AT 105/85. PT DENIES CHEST PAIN. PT WAS ABLE TO USE THE URINAL WITH ASSISTANCE, HAD 625ML VOIDED. THIS RN DID NOT GIVE NYSTATIN DUE TO ALTERED MENTAL STATUS. WITH DO HOURLY ROUNDS ON PT. NO NEW INTERVENTIONS AT THIS TIME. PLAN OF CARE CONTINUED.
[2024-05-08] VITALS (8 sets, daily range): BP systolic 98–149; BP diastolic 76–91
[2024-05-08 03:19] LABS: BASOPHILS ABSOLUTE AUTO 0.05 K/mm3 (0.00-0.23); BASOPHILS PERCENT AUTO 1 % (0-2); EOSINOPHILS ABSOLUTE AUTO 0.18 K/mm3 (0.00-0.68); EOSINOPHILS PERCENT AUTO 3 % (0-6); Hematocrit 29.7 % (37.0-53.0); Hemoglobin 9.9 g/dL (13.5-17.5); IMMATURE GRAN ABSOLUTE AUTO 0.02 K/mm3 (0.00-0.10); IMMATURE GRAN PERCENT AUTO 0 % (0-1); LYMPHOCYTES ABSOLUTE AUTO 0.98 K/mm3 (0.84-5.20); LYMPHOCYTES PERCENT AUTO 15 % (21-46); MONOCYTES ABSOLUTE AUTO 0.98 K/mm3 (0.16-1.47); MONOCYTES PERCENT AUTO 15 % (4-13); Mean Corpuscular HGB 32.7 pg (26.0-34.0); Mean Corpuscular HGB Conc 33.3 g/dL (31.5-36.5); Mean Corpuscular Volume 98 fL (80-100); Mean Platelet Volume 9.2 fL (9.1-12.4); NEUTROPHILS ABSOLUTE AUTO 4.47 K/mm3 (1.96-9.15); NEUTROPHILS PERCENT AUTO 67 % (41-73); Platelet Count 315 K/mm3 (150-400); RDW Coefficient Variation 14.5 % (11.7-14.2); RDW Standard Deviation 52.7 fL (35.1-46.3); Red Blood Cell Count 3.03 M/mm3 (4.30-5.90); White Blood Cell Count 6.68 K/mm3 (4.00-11.30)
[2024-05-08 03:33] LABS: International Normalized Ratio 1.17; Prothrombin Time Results 12.4 Sec (9.7-11.5)
[2024-05-08 03:47] LABS: Albumin, Blood 2.4 g/dL (3.4-5.0); Albumin/Globulin Ratio 0.7 (0.8-1.8); Bilirubin, Total 0.7 mg/dL (0.1-1.0); Bun/Creatinine Ratio 9.6 (12.0-20.0); Calcium, Blood 8.7 mg/dL (8.5-10.1); Creatinine, Blood 0.42 mg/dL (0.60-1.20); Globulin, Blood 3.4 g/dL (2.2-4.0); Potassium, Blood 3.8 mmol/L (3.5-5.5); Total Protein, Blood 5.8 g/dL (6.4-8.2)
--- NOTE | 2024-05-08 04:24 | NUR ---
PT SUMMARY PT SEEMS TO BE MORE ALERT AND ORIENTED, THIS RN WAS ACTUAL ABLE TO HAVE A CONVERSATION WITH PT. OPENING EYES MORE SPONTANEOUSLY, STILL A LITTLE CONFUSED ABOUT WHAT HOSPITAL HE IS AT BUT IS REDIRECTABLE. VITAL SIGNS STABLE THROUGHOUT THE NIGHT, NO NEW EVENTS TO REPORT OVERNIGHT. PLAN OF CARE CONTINUED.
[2024-05-08 09:14] LABS: Free Thyroxine 0.94 ng/dL (0.70-1.60)
[2024-05-08 09:17] LABS: Triiodothyronine, Free 1.81 pg/mL (2.18-3.98)
--- NOTE | 2024-05-08 09:54 | NUR ---
am note this rn assumed care at 0700. vital signs stable. patient is intermittent alert, but will fall back asleep within a few mins of not having conversation with this rn assumed care. patient knew why he was in the hospital, date/year, person, and self. patient is much more awake now compared to this morning, and is able to get out of bed with two person assist and gait belt to bedside comode. patient is able to make needs known and use call light appropriately. denies pain, chest pain/pressure or shortness of breath. see shift assessment for further detials. at bedside this morning and updated on how patient did throughout the night. plan of care is up to date at this time
[2024-05-08] MEDS ORDERED: Spironolactone 25 MG Tab PO SCH (16:00)
[2024-05-08] MEDS ORDERED: Furosemide 20 MG Tab PO SCH (16:00)
--- NOTE | 2024-05-08 16:46 | NUR ---
shift summary patient neuro remains improved, alert and oreinted x4. neuro is intact. vital signs stable. no acute changes. plan remains up to date.
[2024-05-08] MEDS ORDERED: Thiamine HCl 500 MG in NS 100 ML IV SCH (17:00)
--- NOTE | 2024-05-08 23:48 | NUR ---
THIS RN ASSUMED CARE OF PT AT 1900. PT IS ALERT AND ORIENTED X3-4. PT IS FOLLOWING COMMANDS, SITTING IN BED EATING DINNER WITH FRIEND IN THE ROOM. PT HEART RATE IS IN SINUS TACH 100s, PT DENIES CHEST PAIN, BLOOD PRESSURE IS 149/84. PT SOUNDS CLEAR/DIMINSHED, PT DENIES SHORTNESS OF BREATHE, SATTING >92%. PT EXPLAINED THEY HAVE NOT BEEN UP WITH PT/OT BUT THIS RN HAS BEEN ABLE TO GET PT TO COMMODE. NO OTHER INTERVENTIONS AT THIS TIME. PLAN OF CARE CONTINUED.
[2024-05-09 03:15] VITALS: BP 120/96
[2024-05-09 03:57] LABS: BASOPHILS ABSOLUTE AUTO 0.05 K/mm3 (0.00-0.23); BASOPHILS PERCENT AUTO 1 % (0-2); EOSINOPHILS ABSOLUTE AUTO 0.11 K/mm3 (0.00-0.68); EOSINOPHILS PERCENT AUTO 1 % (0-6); Hematocrit 29.3 % (37.0-53.0); Hemoglobin 10.1 g/dL (13.5-17.5); IMMATURE GRAN ABSOLUTE AUTO 0.02 K/mm3 (0.00-0.10); IMMATURE GRAN PERCENT AUTO 0 % (0-1); LYMPHOCYTES ABSOLUTE AUTO 1.21 K/mm3 (0.84-5.20); LYMPHOCYTES PERCENT AUTO 15 % (21-46); MONOCYTES ABSOLUTE AUTO 1.18 K/mm3 (0.16-1.47); MONOCYTES PERCENT AUTO 15 % (4-13); Mean Corpuscular HGB Conc 34.5 g/dL (31.5-36.5); Mean Corpuscular Volume 96 fL (80-100); Mean Platelet Volume 9.2 fL (9.1-12.4); NEUTROPHILS ABSOLUTE AUTO 5.36 K/mm3 (1.96-9.15); NEUTROPHILS PERCENT AUTO 68 % (41-73); Platelet Count 342 K/mm3 (150-400); RDW Coefficient Variation 14.4 % (11.7-14.2); RDW Standard Deviation 50.6 fL (35.1-46.3); Red Blood Cell Count 3.06 M/mm3 (4.30-5.90); White Blood Cell Count 7.93 K/mm3 (4.00-11.30)
--- NOTE | 2024-05-09 04:04 | NUR ---
PT SUMMARY PT IS LAYING IN BED WATCHING TV, NO NEW EVENTS TO REPORT OVERNIGHT, VITAL HAVE BEEN STABLE. PLAN OF CARE CONTINUED.
[2024-05-09 04:15] LABS: Albumin, Blood 2.4 g/dL (3.4-5.0); Albumin/Globulin Ratio 0.7 (0.8-1.8); Bilirubin, Total 0.5 mg/dL (0.1-1.0); Calcium, Blood 8.3 mg/dL (8.5-10.1); Creatinine, Blood 0.4 mg/dL (0.60-1.20); Globulin, Blood 3.6 g/dL (2.2-4.0); Potassium, Blood 3.9 mmol/L (3.5-5.5)
[2024-05-09 07:53] VITALS: BP 110/97
[2024-05-09] MEDS ORDERED: Protein Supplement 30 ML UD PO SCH ×2 (08:00→09:00)
[2024-05-09] MEDS ORDERED: Nicotine 7 MG PATCH TOP SCH (09:00)
[2024-05-09 12:26] VITALS: BP 120/99
[2024-05-09 16:51] VITALS: BP 121/85
--- NOTE | 2024-05-09 18:49 | NUR ---
PT RESTING WELL IN BED. HE REMAINS SLEEPY, HIS SPEECH IS DIFFICULT TO UNDERSTAND. PT HAS BEEN UP WITH STAFF TO BEDSIDE COMMODE TWO PERSON TRANSFER TO USE BEDSIDE COMMODE, TWO SUCCESSFUL BMs THIS AFTERNOON. HE DENIES CP OR SOB. VSS. NADN. SPOUSE HAS BEEN AT THE BEDSIDE FOR MOST OF THE DAY. ORIENTATION WAXES AND WANES T/O THE DAY. 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 PT USES CALL LIGHT INTERMITTENTLY, OCCASIONALLY ATTEMPTS TO EXIT THE BED IMPULSIVELY. POOR APPETITE TODAY.
[2024-05-09 20:00] VITALS: BP 127/97
--- NOTE | 2024-05-09 20:52 | NUR ---
THIS RN ASSUMED CARE OF PT AT 1900. PT IS ALERT AND ORIENTED X3-4, HAS BEEN CONFUSED AT TIMES PER DAYSHIFT RN, PT IS VERY REDIRECTABLE, FOLLOWING COMMANDS. PT HEART RATE IS SINUS TACH 90-100s, BLOOD PRESSURE IS STABLE AT 127/97. PT SOUNDS CLEAR/DIMINSHED, ON ROOM AIR SATTING >92%, PT DENIES ANY SHORTNESS OF BREATHE, AND CHEST PAIN. PT ABDOMEN IS DISTENDED DOES HAVE ASCITES AND THIS RN WAS TOLD THAT THEY MAY DUE ANOTHER PARACENTESIS BEFORE GOING BACK TO [facility]. PT DENIES PAIN, WANTED MELATONIN FOR SLEEP. NO OTHER INTERVENTIONS AT THIS TIME. PLAN OF CARE CONTINUED.
[2024-05-10] VITALS: BP 109/84
[2024-05-10 04:00] VITALS: BP 108/94
[2024-05-10 04:38] LABS: BASOPHILS ABSOLUTE AUTO 0.05 K/mm3 (0.00-0.23); BASOPHILS PERCENT AUTO 1 % (0-2); EOSINOPHILS ABSOLUTE AUTO 0.11 K/mm3 (0.00-0.68); EOSINOPHILS PERCENT AUTO 1 % (0-6); Hematocrit 29.4 % (37.0-53.0); IMMATURE GRAN ABSOLUTE AUTO 0.03 K/mm3 (0.00-0.10); IMMATURE GRAN PERCENT AUTO 0 % (0-1); LYMPHOCYTES ABSOLUTE AUTO 1.39 K/mm3 (0.84-5.20); LYMPHOCYTES PERCENT AUTO 14 % (21-46); MONOCYTES ABSOLUTE AUTO 1.23 K/mm3 (0.16-1.47); MONOCYTES PERCENT AUTO 13 % (4-13); Mean Corpuscular HGB 32.9 pg (26.0-34.0); Mean Corpuscular Volume 97 fL (80-100); Mean Platelet Volume 9.4 fL (9.1-12.4); NEUTROPHILS PERCENT AUTO 71 % (41-73); Platelet Count 379 K/mm3 (150-400); RDW Coefficient Variation 14.6 % (11.7-14.2); RDW Standard Deviation 51.7 fL (35.1-46.3); Red Blood Cell Count 3.04 M/mm3 (4.30-5.90); White Blood Cell Count 9.71 K/mm3 (4.00-11.30)
[2024-05-10 04:57] LABS: Albumin, Blood 2.3 g/dL (3.4-5.0); Albumin/Globulin Ratio 0.6 (0.8-1.8); Bilirubin, Total 0.5 mg/dL (0.1-1.0); Bun/Creatinine Ratio 15.3 (12.0-20.0); Calcium, Blood 8.7 mg/dL (8.5-10.1); Creatinine, Blood 0.46 mg/dL (0.60-1.20); Globulin, Blood 3.7 g/dL (2.2-4.0)
--- NOTE | 2024-05-10 04:59 | NUR ---
PT SUMMARY PT IS IN BED READING HIS BOOK. PT WANTED TO STAND THROUGHOUT THE NIGHT, THIS RN WAS ABLE TO HELP PT STAND WITH WALKER. VITAL SIGNS STABLE, BLOOD PRESSURE STABLE AT 108/94. NO NEW EVENTS TO REPORT OVERNIGHT OTHER THAN A LITTLE CONFUSION AT TIMES, BUT PT WAS VERY REDIRECTABLE. PLAN OF CARE CONTINUED.
[2024-05-10] MEDS ORDERED: Lactulose 20 GM/30 ML UDC PO SCH (07:30)
[2024-05-10 08:20] VITALS: BP 112/89
[2024-05-10 11:36] VITALS: BP 125/100
[2024-05-10] MEDS ORDERED: Peg 400/Hypromellose/Glycerin 15 DROP/ML BTL BOTHEYES PRN (13:45)
[2024-05-10] MEDS ORDERED: Propranolol HCL 20 MG TAB PO SCH (16:30)
[2024-05-10 16:53] VITALS: BP 108/86
--- NOTE | 2024-05-10 17:38 | NUR ---
Shift Summary Pt alert, oriented x3; calm and cooperative with care. Pt up with 2 person assist to recliner this am and several times to bsc. Pt denies pain, chest pain/pressure, sob, nausea, dizziness and numb/tingling. Pt reporting burning eyes, notifiedm new orders. Pt spouse expressed concerns regarding red rash on face, MD notified, new orders entered. Tele sinus/sinus tach 80-100's, bp stable, edema noted to ble, right worse than left. Spo2 >90% on ra, breathing even and unlabored. Abd moderate distended, firm, nontender with hypoactive bt t/o. Using urinal in bed with assistance. Other vss. No other acute changes noted. Will continue to monitor.
--- NOTE | 2024-05-10 17:49 | NUR ---
Shift Summary Pt alert, oriented x3; calm and cooperative with care. Pt up with 2 person assist to bathroom. Pt denies pain, chest pain/pressure, sob, nausea, dizziness and numb/tingling. Spo2 >90% on 3l o2 via nc while sleeping, >90% on ra while awake. Tele sinus 50-60's, bp elevated this afternoon. Abd soft, nontender, +bt, bm this shift. Edema and discoloration noted to ble, scattered wounds. Coccyx dressing changed this am. Other vss. No other acute changes noted. Will continue to monitor.
[2024-05-10] MEDS ORDERED: Doxycycline Hyclate 100 MG TAB PO SCH (21:00)
[2024-05-10 21:24] VITALS: BP 116/89
[2024-05-11 00:19] VITALS: BP 115/88
[2024-05-11 05:16] VITALS: BP 121/98
[2024-05-11 05:37] LABS: BASOPHILS ABSOLUTE AUTO 0.08 K/mm3 (0.00-0.23); BASOPHILS PERCENT AUTO 1 % (0-2); EOSINOPHILS PERCENT AUTO 2 % (0-6); Hematocrit 28.5 % (37.0-53.0); Hemoglobin 9.7 g/dL (13.5-17.5); IMMATURE GRAN ABSOLUTE AUTO 0.05 K/mm3 (0.00-0.10); IMMATURE GRAN PERCENT AUTO 1 % (0-1); LYMPHOCYTES ABSOLUTE AUTO 1.27 K/mm3 (0.84-5.20); LYMPHOCYTES PERCENT AUTO 14 % (21-46); MONOCYTES PERCENT AUTO 14 % (4-13); Mean Corpuscular HGB 32.8 pg (26.0-34.0); Mean Corpuscular Volume 96 fL (80-100); Mean Platelet Volume 9.3 fL (9.1-12.4); NEUTROPHILS ABSOLUTE AUTO 6.25 K/mm3 (1.96-9.15); NEUTROPHILS PERCENT AUTO 68 % (41-73); Platelet Count 407 K/mm3 (150-400); RDW Coefficient Variation 14.6 % (11.7-14.2); Red Blood Cell Count 2.96 M/mm3 (4.30-5.90); White Blood Cell Count 9.15 K/mm3 (4.00-11.30)
[2024-05-11 06:15] LABS: Albumin, Blood 2.3 g/dL (3.4-5.0); Albumin/Globulin Ratio 0.7 (0.8-1.8); Bilirubin, Total 0.5 mg/dL (0.1-1.0); Bun/Creatinine Ratio 16.4 (12.0-20.0); Calcium, Blood 8.7 mg/dL (8.5-10.1); Creatinine, Blood 0.43 mg/dL (0.60-1.20); Globulin, Blood 3.5 g/dL (2.2-4.0); Total Protein, Blood 5.8 g/dL (6.4-8.2)
--- NOTE | 2024-05-11 06:50 | NUR ---
PT VITAL SIGNS STABLE THROUGHOUT THE SHIFT. PT ORIENTATION WAS LABILE AND PT DID SET OFF BED ALARM A FEW TIMES THIS SHIFT. PT DID USE CALL LIGHT APPROPRIATELY FOR MOST OF THE NIGHT. PT DOES HAVE MUMBLED SPEECH, NEEDS OR ORIENTATION OCCASSIONALY DIFFICULT TO DETERMINE. PT WAS EASILY REDIRECTABLE. PT LEFT UPPER ARM POWER GLIDE FLUSHES AND DRAWS EASILY. PT DID HAVE MULTIPLE LOOSE STOOLS THROUGHOUT THE SHIFT WITH ACCOMPANYING UNMEASURED VOIDS. MILD TO MODERATE EDEMA PRESENT TO ABD AND B/L LEGS. PT WAS TURNED Q2 HOURS AND HEELS FLOATED. PT REMAINS ON ROOM AIR NO C/O SOB/CP. PT DID HAVE INTERMITTENT SLEEP.
[2024-05-11 08:00] VITALS: BP 116/77
[2024-05-11] MEDS ORDERED: Spironolactone 50 MG Tab PO SCH (09:00)
[2024-05-11] MEDS ORDERED: Thiamine HCl 100 MG Tab PO SCH (09:00)
[2024-05-11 11:29] VITALS: BP 118/95
[2024-05-11] MEDS ORDERED: DOXY100 PO (12:57)
[2024-05-11] MEDS ORDERED: FAMO20 PO (12:57)
[2024-05-11] MEDS ORDERED: FOLI1 PO (12:57)
[2024-05-11] MEDS ORDERED: LACT10SY PO (12:59)
[2024-05-11] MEDS ORDERED: LOPE2C PO (13:00)
[2024-05-11] MEDS ORDERED: MELATONIN5 M1 PO (13:01)
[2024-05-11] MEDS ORDERED: ARTIFICIAL TEAR15 M6 BOTHEYES (13:02)
[2024-05-11] MEDS ORDERED: PROP10 PO (13:03)
[2024-05-11] MEDS ORDERED: LIQUACEL PO (13:05)
[2024-05-11] MEDS ORDERED: ALDACTONE100 MG PO (13:05)
[2024-05-11] MEDS ORDERED: B-1100 M2 PO (13:06)
[2024-05-11 13:24] LABS: SARS-Cov-2 (COVID-19) PCR, MMC NEGATIVE (NEGATIVE)
[2024-05-11 14:06] VITALS: BP 111/88
--- NOTE | 2024-05-11 14:21 | NUR ---
DISCHARGE SUMMARY PT A&O X3, CONFUSED AND IMPULSIVE AT TIMES, OBEYS COMMANDS AND ABLE TO MAKE NEEDS KNOWN. GETS UP ONE PERSON ASSIST WITH A FRONT WHEEL WALKER. RESPIRATORY WNL ON ROOM AIR. SINUS RHYTHM IN 90-100'S, DENIED CHEST P/P T/O THIS SHIFT, BP STABLE WITH MAP GREATER THAN 65. LAST BM THIS AM. VOIDING IN BSC. IV'S REMOVED AND VSS, WHEELED OUT BY MEDICAL STAFF DISCHARG INFORTMATION GIVEN TO TRANSPORT PERSONALE TO GIVE TO STEPHAN, REPORT CALLED TO STEPHAN HEATON.
== END 2024-05-11 14:06 | DRG 432 ==
LOC: ER 07:39 → PCU 10:28 → MEDS 10:28 → ICUE 10:28 → MEDS 05-05 15:25 → PCU 05-07 17:47
PROVIDERS: Family Medicine; Internal Medicine; Student in an Organized Health Care Education/Training Program; ADMIT Internal Medicine
PROC: 0W9G3ZZ Drainage of Peritoneal Cavity, Percutaneous Approach (ICD-10-PCS; principal; 2024-04-30)
PROC: 0T9B70Z Drainage of Bladder with Drainage Device, Via Natural or Artificial Opening (ICD-10-PCS; 2024-05-01)
DX: K70.31 Alcoholic cirrhosis of liver with ascites (principal); G92.8 Other toxic encephalopathy; B37.0 Candidal stomatitis; E44.0 Moderate protein-calorie malnutrition; E87.1 Hypo-osmolality and hyponatremia; F10.239 Alcohol dependence with withdrawal, unspecified; J98.11 Atelectasis; K76.6 Portal hypertension; E51.2 Wernicke's encephalopathy; J90 Pleural effusion, not elsewhere classified; I95.9 Hypotension, unspecified; L71.0 Perioral dermatitis; D64.9 Anemia, unspecified; M17.9 Osteoarthritis of knee, unspecified; Y90.6 Blood alcohol level of 120-199 mg/100 ml; M19.019 Primary osteoarthritis, unspecified shoulder; F17.290 Nicotine dependence, other tobacco product, uncomplicated; Z68.26 Body mass index [BMI] 26.0-26.9, adult; I10 Essential (primary) hypertension; Z71.41 Alcohol abuse counseling and surveillance of alcoholic; Z71.6 Tobacco abuse counseling; Z79.811 Long term (current) use of aromatase inhibitors; Z79.899 Other long term (current) drug therapy
CPT/HCPCS: 36415; 49083; 51701; 51702; 70450; 71045; 74177; 80051; 80053; 80061; 80069; 80074; 80320; 81003; 82042; 82103; 82105; 82140; 82330; 82533; 82607; 82728; 82746; 82803; 83605; 83735; 83930; 84100; 84157; 84436; 84439; 84443; 84481; 85025; 85027; 85045; 85610; 85730; 87040; 87070; 87075; 87205; 88108; 88305; 89051; 93005; 93010; 94760; 94762; 96374; 97110; 97162; 97530; 99284-25; A9270; J1650; J1940; J2060; J3411; J3475; J7030; J7040; J7060; P9047; Q9967; U0002

== ENCOUNTER 2024-05-13 11:17 | Emergency (ER) | payer OTHER ==
[~2024-05-13] VITALS: Ht 170.2 cm; Wt 77.1 kg
[~2024-05-13 11:17] MED LIST changes: +ALDACTONE100 MG PO; +ARTIFICIAL TEAR15 M6 BOTHEYES; +B-1100 M2 PO; +DOXY100 PO; +FAMO20 PO; +FOLI1 PO; +FURO20 PO; +LACT10SY PO; +LIQUACEL PO; +LISI20 PO; +LOPE2C PO; +MELATONIN5 M1 PO; +PROP10 PO
[2024-05-13 12:12] LABS: BASOPHILS ABSOLUTE AUTO 0.11 K/mm3 (0.00-0.23); BASOPHILS PERCENT AUTO 1 % (0-2); EOSINOPHILS ABSOLUTE AUTO 0.23 K/mm3 (0.00-0.68); EOSINOPHILS PERCENT AUTO 2 % (0-6); Hematocrit 30.4 % (37.0-53.0); Hemoglobin 10.3 g/dL (13.5-17.5); IMMATURE GRAN ABSOLUTE AUTO 0.05 K/mm3 (0.00-0.10); IMMATURE GRAN PERCENT AUTO 1 % (0-1); LYMPHOCYTES ABSOLUTE AUTO 1.24 K/mm3 (0.84-5.20); LYMPHOCYTES PERCENT AUTO 13 % (21-46); MONOCYTES ABSOLUTE AUTO 1.57 K/mm3 (0.16-1.47); MONOCYTES PERCENT AUTO 16 % (4-13); Mean Corpuscular HGB 32.9 pg (26.0-34.0); Mean Corpuscular HGB Conc 33.9 g/dL (31.5-36.5); Mean Corpuscular Volume 97 fL (80-100); Mean Platelet Volume 9.4 fL (9.1-12.4); NEUTROPHILS ABSOLUTE AUTO 6.59 K/mm3 (1.96-9.15); NEUTROPHILS PERCENT AUTO 67 % (41-73); Platelet Count 467 K/mm3 (150-400); RDW Coefficient Variation 14.3 % (11.7-14.2); RDW Standard Deviation 51.1 fL (35.1-46.3); Red Blood Cell Count 3.13 M/mm3 (4.30-5.90); White Blood Cell Count 9.79 K/mm3 (4.00-11.30)
[2024-05-13] MEDS ORDERED: BISA10S PR (12:21)
[2024-05-13 12:32] LABS: Ethanol (Alcohol), Blood, Med <3 mg/dL
[2024-05-13 12:33] LABS: Alanine Aminotransfer (ALT/SGP 55 U/L (12-78); Albumin, Blood 2.6 g/dL (3.4-5.0); Albumin/Globulin Ratio 0.6 (0.8-1.8); Alk Phos 150 U/L (50-136); Anion Gap 9 mmol/L (3-11); Aspartate Aminotrans (AST/SGOT 161 U/L (12-37); Bilirubin, Total 0.6 mg/dL (0.1-1.0); Blood Urea Nitrogen 10 mg/dL (8-24); Bun/Creatinine Ratio 20.6 (12.0-20.0); CO2, Blood 28 mmol/L (21-32); Calcium, Blood 8.6 mg/dL (8.5-10.1); Chloride, Blood 102 mmol/L (98-108); Creatinine, Blood 0.49 mg/dL (0.60-1.20); Glomerular Filtration Rate 122 (60-); Glucose, Blood 93 mg/dL (70-99); Potassium, Blood 3.8 mmol/L (3.5-5.5); Sodium, Blood 135 mmol/L (136-145); Total Protein, Blood 6.6 g/dL (6.4-8.2)
[2024-05-13 13:25] LABS: Source, Urine Clean Catch
[2024-05-13 13:32] LABS: Appearance, Urine Clear (Clear); Bilirubin, Urine Neg (Neg); Blood, Urine 5+ (Neg); Color, Urine Yellow (P-Yellow); Glucose Qualitative, Urine Neg (Neg); Ketones, Urine Neg (Neg); Leukocyte Esterase, Urine Neg (Neg); Nitrite, Urine Neg (Neg); Protein, Urine Neg (Neg); Urobilinogen, Urine NORM (Normal)
[2024-05-13 13:40] LABS: Bacteria Few /hpf; Red Blood Cells, Urine 25-50 /hpf (0-2); Squamous Epithelial Cells Rare /hpf (Few)
[2024-05-13 13:48] LABS: U Amphetamine Screen Not Detected; U Barbituate Screen Not Detected; U Benzodiazapine Screen DETECTED; U Buprenorphine Screen Not Detected; U Cannabinoids Screen Not Detected; U Cocaine Screen Not Detected; U Methadone Screen Not Detected; U Methamphetamine Screen Not Detected; U Opiates Screen Not Detected; U Oxycodone Screen Not Detected; U Phencyclidine Screen Not Detected
[2024-05-13] MEDS ORDERED: LORazepam 2 MG/ML 1ML Injection IV ONE (17:25)
[2024-05-13] MEDS ORDERED: HYDHCL25 PO (17:58)
[2024-05-13 18:30] VITALS: BP 126/66
== END 2024-05-13 18:46 | disposition home or self-care (01) ==
LOC: ER 11:17
PROVIDERS: Student in an Organized Health Care Education/Training Program
DX: R33.9 Retention of urine, unspecified (principal); I10 Essential (primary) hypertension; Z87.891 Personal history of nicotine dependence; Z79.899 Other long term (current) drug therapy
CPT/HCPCS: 51702; 51798; 70450; 71046; 80053; 80320; 81001; 82140; 85025; 93005; 93010; 96374; 99285-25; J2060